=== PATIENT | male | born 2000 | race Caucasian/White ===

== ENCOUNTER 2020-02-09 17:31 | Observation (INO) ==
--- OUTSIDE RECORDS SUMMARY | 2020-02-09 17:33 | External Medical Summary | Continuity of Care Document ---
:2000 Author Name Serina Martinez Address Unavailable Unavailable , Care Team Providers Name Role Phone Victorina Mancuso M.D. Unavailable [email or web address] Testicular pain (608.9) (N50.819) Exercise Counseling Patient Education - Dietary (V65.3) Allergies and Adverse Reactions No Known Drug Allergies (Allergy) Medications No Reported Medications Refills: 0 Procedures Patient Education - Dietary Exercise Counseling Immunizations Hib (Haemophilus influenzae type b conjugate) and Hepa titis B vaccine On: 17-Jan-2001 0:00 DTaP On: 17-Jan-2001 0:00 IPV On: 17-Jan-2001 0:00 Pneumo (Prevnar) On: 17-Jan-2001 0:00 Hib (Haemophilus influenzae type b conjugate) and Hepa titis B vaccine On: 18-Mar-2001 0:00 DTaP On: 18-Mar-2001 0:00 IPV On: 18-Mar-2001 0:00 Pneumo (Prevnar) On: 18-Mar-2001 0:00 DTaP On: 12-May-2001 0:00 Pneumo (Prevnar) On: 15-Aug-2001 0:00 Hib (Haemophilus influenzae type b conjugate) and Hepa titis B vaccine On: 17-Dec-2001 0:00 MMR On: 17-Dec-2001 0:00 Varicella On: 17-Dec-2001 0:00 DTaP On: 11-Feb-2002 0:00 IPV On: 11-Feb-2002 0:00 Pneumo (Prevnar) On: 26-Jan-2003 0:00 DTaP On: 08-Jan-2006 0:00 IPV On: 08-Jan-2006 0:00 MMR On: 09-Jan-2006 0:00 Hepatitis A On: 09-Jan-2006 0:00 Hepatitis A On: 12-Jul-2006 0:00 Influenza (Nasal) On: 01-Jun-2008 0:00 Influenza (Nasal) On: 01-Jun-2009 0:00 Influenza A (H1N1) Monoval Vac SUSP On: 01-Jun-2009 0:00 Influenza (Nasal) On: 01-Jun-2010 0:00 Varicella On: 24-Oct-2010 0:00 Tdap On: 13-Dec-2011 0:00 Meningo (Menactra) On: 13-Dec-2011 0:00 Influenza (Nasal) On: 17-Jul-2012 0:00 HPV (Gardasil) On: 26-Dec-2012 0:00 FluMist LIQD On: 19-May-2013 9:36 Lot #: [id number], MEDIMMUNE HPV (Gardasil) On: 19-May-2013 9:36 Lot #: [id number], [employer] Family History Unknown Family Member Family history of Hypertension (V17.49) Status: Active Comments: Family History Family history of Pure Hypercholesterolemia Status: Active Comments: Family History Family history of Heart Disease (V17.49) Status: Active Comments: Family History Plan of Treatment Planned Observations Planned Goals not documented Results No Known Results Results not documented
--- OUTSIDE RECORDS SUMMARY | 2020-02-09 17:34 | External Medical Summary | Continuity of Care Document ---
:2000 Author Name Serina Martinez Address Unavailable Unavailable , Care Team Providers Name Role Phone Victorina Mancuso M.D. Unavailable [email or web address] [place] Problems Patient Education - Dietary (V65.3) Exercise Counseling Testicular pain (608.9) (N50.819) Allergies and Adverse Reactions No Known Drug [...] FluMist LIQD On: 19-May-2013 9:36 Lot #: [id number], MEDIMMUNE HPV (Gardasil) On: 19-May-2013 9:36 Lot #: [id number], [employer] Family History Unknown Family Member Family history of Hypertension (V17.49) Status: Active Comments: Family History Family history of Pure Hypercholesterolemia Status: Active Comments: Family History Family history of Heart Disease (V17.49) Status: Active Comments: Family History Plan of Treatment Planned Observations Planned Goals not documented Results No Known Results Results not documented
[2020-02-09] MEDS ORDERED: ONDANSETRON INJ 2 MG/ML 2 ML VIAL IV STA (17:39)
[2020-02-09] MEDS ORDERED: SODIUM CHLORIDE 0.9% 1000ML 1,000 ML IV SCH (17:45)
[2020-02-09] MEDS ORDERED: KETOROLAC TROMETHAMINE 15 MG/ML VIAL IV STA (17:56)
--- NOTE | 2020-02-09 17:56 | Emergency Department Note ---
Impression & Plan Nausea & vomiting, Diarrhea, Left sided abdominal pain ED Provider Note INFORMANT: [Patient] ED PROVIDER(S): Simba Youngblood MD CHIEF COMPLAINT: Abdominal pain PLAN: Disposition: Admitted Condition: Good Outpatient prescription management: [none] MEDICAL DECISION MAKING: Patient presented with left-sided abdominal pain. He noted starting with diarrhea yesterday. He has had multiple episodes of vomiting today. The p atient was given normal saline hydration. IV Toradol and Zofran were administered. He had blood work obtained. He had a significant leukocytosis of 20,000 with left shift on differential. Chemistry panel was unremarkable. Patient underwent CT imaging due to the abdominal pain and significant le ukocytosis. The patient has findings concerning for acute appendicitis. Patient was given IV Mefoxin. He declined additional analgesia. Consultation was made with Dr. Covarrubias of general surgery. He evaluated the patient in the ER and took him to the operative suite for further management. Triage Nursing notes reviewed and agree them. Vital Signs: reviewed and remarkable for [no significant abnormalities] Differential diagnosis: Etiologies such as gastroenteritis, food borne illness, infections, appendicitis, diverticulitis, inflammatory bowel disease, GI bleed, biliary pathology, as well as others were entertained. Diagnostics interpreted by me: Cardiac Monitoring: Cardiac monitoring ordered by me: The patient was placed on continuous cardiac monitoring and observed. It revealed a normal sinus rhythm at 70 beats per minute without ectopy or evidence of dysrhythmia. CT scan of the abdomen pelvis was performed and reveals findings discerning for acute appendicitis. Dilated appendix with appendicolith. Peer appendiceal stranding present. Consultation(s): General surgery HPI: The patient is a 19 year old male who presents to the Emergency Room with complaints of abdominal pain. This started yesterday with diarrhea and is now associated with multiple episodes of nausea and vomiting. The patient has tried zofran relieving factors. Current pain is rated as 8/10. Pt denies LOC, headache, fevers, chills, diaphoresis, visual changes, neck pain, chest pain, breathing difficulties, back pain, melena, hematochezia, urinary symptoms, numbness, weakness, lymphadenopathy, rash, or other complaints. ROS: See above HPI for pertinent positives & negatives. A total of [10] systems reviewed and were otherwise negative. PAST MEDICAL HISTORY:[See Below] Pt denies PAST SURGICAL HISTORY:[See Below] FAMILY HISTORY:[See Below] SOCIAL HISTORY:[See Below]Lives with family. HOME MEDICATIONS:[See Below] ALLERGIES:[See Below] VITALS:[See Below] PHYSICAL EXAMINATION: GENERAL: Awake, alert, uncomfortable-appearing, in no distress HENT: Normocephalic, atraumatic. Oropharynx unremarkable. EYES: Normal conjunctiva. Sclera non-icteric. NECK: Inspection normal. Non-tender. Supple. No nuchal rigidity. FROM. No masses. RESPIRATORY: Clear to auscultation. No wheezes. No rales. Normal respiratory effort. CARDIAC: Normal rate. Normal rhythm. No murmurs. No rubs. Extremities warm and well perfused. Pulses equal. No JVD. GI: Soft, non-distended. LUQ tenderness to palpation. No rebound or guarding. No masses. RECTAL: Deferred. MUSCULOSKELETAL: Atraumatic. Chest examination reveals no tenderness. The back is symmetrical on inspection without obvious abnormality. There is no CVA tenderness to palpation. No joint edema. LOWER EXTREMITIES: Calves are equal size bilaterally and non-tender. No edema. No discoloration. NEURO: Normal sensorium. No sensory or motor deficits noted. SKIN: No rash or jaundice noted. ED COURSE: [Critical Care:] [None] Simba Youngblood MD Past Med/Surg History Medical History (Updated 02/09/20 @ 20:[address] MD) Acute appendicitis with localized peritonitis Social History Smoking Status: Former smoker Tobacco Type: Cigarettes Do You Dip or Chew Tobacco: No; Hx Alcohol Use: No Hx Substance Use: No Preferred Language: Mongolian Feels Safe at Home: Yes Allergies Allergies Allergy/AdvReac Type Severity Reaction Status Date / Time No Known Allergies Allergy Verified 02/09/20 18:49 Home Meds Home Medications Medication Instructions Recorded Confirmed No Known Home Medications 02/09/20 02/09/20 Results & Data (ED) Vital Signs Vital Signs - 24 hr 02/09/20 17:35 02/09/20 18:05 02/09/20 18:06 Temperature 36.9 C Temperature Source Oral Pulse Rate 56 L 60 61 Pulse Rate [Apical] Pulse Rhythm Regular Pulse Strength Normal Respiratory Rate 20 17 Respiratory Effort / Characteristics Non-Labored Respiratory Depth Normal Respiratory Pattern Regular Blood Pressure 132/64 137/68 Blood Pressure [Left Arm] Blood Pressure Mean 86 79 Blood Pressure Mean [Left Arm] Blood Pressure Position Sitting Pulse Oximetry 99 Oxygen Delivery Method Room Air Sepsis Recent Fever Within 48 Hours No Sepsis New/Unexplained Change in Mental Status N/A Sepsis Action Taken by Nursing No Action Required 02/09/20 18:22 02/09/20 20:00 02/09/20 20:25 Temperature Temperature Source Pulse Rate Pulse Rate [Apical] 77 68 Pulse Rhythm Pulse Strength Respiratory Rate 18 19 Respiratory Effort / Characteristics Respiratory Depth Respiratory Pattern Blood Pressure Blood Pressure [Left Arm] 130/59 L 149/76 H Blood Pressure Mean Blood Pressure Mean [Left Arm] 82 100 Blood Pressure Position Pulse Oximetry 98 99 99 Oxygen Delivery Method Room Air Room Air Room Air Sepsis Recent Fever Within 48 Hours Sepsis New/Unexplained Change in Mental Status Sepsis Action Taken by Nursing Laboratory Data Result diagrams: 02/09/20 17:55 02/09/20 17:55 Lab Results 02/09/20 02/09/20 02/09/20 Range/Units 17:55 17:55 19:30 WBC 20.20 H (4.8-10.8) K/uL RBC 4.78 (4.7-6.1) M/uL Hgb 15.0 (14.0-18.0) g/dL Hct 41.8 L (42-52) % MCV 87.4 (80-100) fL MCH 31.4 (25-34) pg MCHC 35.9 (32-36) g/dL RDW Std Deviation 41.0 (36.4-46.3) fL RDW Coeff of Yakelin 12.8 (11.5-14.5) % Plt Count 259 (130-400) K/uL MPV 10.3 (7.4-10.4) fL Immature Gran % (Auto) 0.3 % Neut % (Auto) 92.7 % Lymph % (Auto) 5.4 % [place] % (Auto) 1.6 % Eos % (Auto) 0.0 % Baso % (Auto) 0.0 % Neut # (Auto) 18.70 H (1.4-6.5) K/uL Lymph # (Auto) 1.10 L (1.2-3.4) K/uL [place] # (Auto) 0.33 (0.11-0.59) K/uL Eos # (Auto) 0.00 (0-0.5) K/uL Baso # (Auto) 0.01 (0-0.2) K/uL Immature Gran # (Auto) 0.06 H (0.00-0.02) K/uL Sodium 134 L (136-145) mmol/L Potassium 4.2 (3.5-5.1) mmol/L Chloride 101 (98-107) mmol/L Carbon Dioxide 25 (21-32) mmol/L Anion Gap 9.0 (3-11) BUN 13 (7-18) mg/dl Creatinine 1.30 (0.6-1.4) mg/dl Est Cr Clr Drug Dosing 96.4 ml/min Est GFR ( Amer) 91.7 Est GFR (Non-Af Amer) 79.1 BUN/Creatinine Ratio 10.0 (10-20) Glucose 114 H (70-99) mg/dl Calcium 9.6 (8.5-10.1) mg/dl Total Bilirubin 0.6 (0.2-1) mg/dl AST 15 (15-37) U/L ALT 15 (12-78) U/L Alkaline Phosphatase 129 H (45-117) U/L Total Protein 9.3 H (6.4-8.2) gm/dl Albumin 4.3 (3.4-5.0) gm/dl Globulin 5.0 H (2.5-4.0) gm/dl Albumin/Globulin Ratio 0.9 (0.9-2) Lipase 37 L (73-393) U/L Urine Color Yellow Urine Appearance Clear (Clear) Urine pH 8.5 H (4.5-7.5) Ur Specific [place] > 1.045 H (1.000-1.030) Urine Protein Negative (Negative) Urine Glucose (UA) Negative (Negative) Urine Ketones Negative (Negative) Urine Blood Negative (Negative) Urine Nitrite Negative (Negative) Urine Bilirubin Negative (Negative) Urine Urobilinogen Negative (Negative) Ur Leukocyte Esterase Negative (Negative) Administered Medications Fentanyl Citrate (Fentanyl Citrate) 25 mcg IV Q5M PRN PRN Reason: PACU Use Only-Pain Stop: 02/10/20 04:35 Last Admin: 02/09/20 22:27 Dose: 25 mcg Documented by: [id number] Ioversol (Optiray 320 100ml) 93 ml IV ONCE PRN PRN Reason: Interaction Checking Stop: 02/13/20 19:13 Last Admin: 02/09/20 19:15 Dose: 93 ml Documented by: [id number] Discontinued Medications Bupivacaine HCl/Epinephrine Bitart (Sensorcaine/Epinephrine 0.5% Mpf 1:200,000) Confirm Administered Dose 30 ml .ROUTE .STK-MED ONE Stop: 02/09/20 20:34 Last Admin: 02/09/20 21:40 Dose: 20 ml Documented by: [id number] Sodium Chloride (Nss 1000ml) 1,000 mls @ 999 mls/hr IV .Q1H1M FANNY Stop: 02/09/20 18:45 Last Infusion: 02/09/20 19:09 Dose: 0 mls/hr Documented by: [id number] Admin: 02/09/20 18:03 Dose: 999 mls/hr Documented by: [id number] Cefoxitin Sodium (Mefoxin) 2,000 mg in 60 mls @ 100 mls/hr IV NOW STA Stop: 02/09/20 20:33 Last Admin: 02/09/20 20:17 Dose: 100 mls/hr Documented by: [id number] Ketorolac Tromethamine (Toradol) 15 mg IV NOW STA Stop: 02/09/20 17:57 Last Admin: 02/09/20 18:02 Dose: 15 mg Documented by: [id number] Ondansetron HCl (Zofran) 4 mg IV NOW STA Stop: 02/09/20 17:40 Last Admin: 02/09/20 18:03 Dose: 4 mg Documented by: [id number] Discharge Plan Visit Data *Final* Discharge Date/Time: 02/09/20 20:45 Chief Complaint: Abdominal Pain Stated Complaint: STOMACH PAIN AND VOMITING ED Provider: Simba Youngblood Discharge Problem: Nausea & vomiting, Diarrhea, Left sided abdominal pain Patient Disposition: Admitted As Inpatient Discharge Instructions Interventions: ED Discharge Assessment Last Done: 02/09/20 20:26
[2020-02-09 18:06] LABS: Basophils # (auto) 0.01 K/uL (0-0.2); Hematocrit (blood only) 41.8 % (42-52); Immature Granulocytes # (auto) 0.06 K/uL (0.00-0.02); Immature Granulocytes % (auto) 0.3 %; Lymphocytes % (auto) 5.4 %; Mean Corpuscular Hemoglobin 31.4 pg (25-34); Mean Corpuscular Hgb Conc 35.9 g/dL (32-36); Mean Corpuscular Volume 87.4 fL (80-100); Mean Platelet Volume 10.3 fL (7.4-10.4); Monocytes # (auto) 0.33 K/uL (0.11-0.59); Monocytes % (auto) 1.6 %; Neutrophils % (auto) 92.7 %; Platelet Count 259 K/uL (130-400); RDW Coefficient of Variation 12.8 % (11.5-14.5); Red Blood Count 4.78 M/uL (4.7-6.1)
[2020-02-09 18:22] LABS: Albumin Level 4.3 gm/dl (3.4-5.0); Calcium 9.6 mg/dl (8.5-10.1); Creatinine Clr Calc Pharmacy 96.4 ml/min; Est GFR (African American) 91.7; Est GFR (Non-African American) 79.1; Potassium 4.2 mmol/L (3.5-5.1)
[2020-02-09 18:25] LABS: Albumin Globulin Ratio 0.9 (0.9-2); Bilirubin,Total 0.6 mg/dl (0.2-1); Total Protein 9.3 gm/dl (6.4-8.2)
[2020-02-09] MEDS ORDERED: IOVERSOL 100ml IV PRN (19:14)
--- NOTE | 2020-02-09 19:40 | CT Scan Report ---
ABDOMEN AND PELVIS CT WITH IV CONTRAST CT DOSE: 323.48 mGy.cm HISTORY: left sided abd pain, WBC 20k, vomiting TECHNIQUE: Multiaxial CT images of the abdomen and pelvis were performed following the use of intrave nous contrast. A dose lowering technique was utilized adhering to the principles of ALARA. COMPARISON STUDY: None. FINDINGS: Tiny groundglass density within the left lower lobe posteriorly favors mild dependent hebert e. No pneumoperitoneum. No pneumatosis. No fractures within the visualized osseous structures. The li melina, gallbladder, pancreas, adrenal glands, and kidneys are unremarkable. The spleen is mildly enlarg ed measuring 14 cm in length. The bladder is unremarkable. Trace pelvic free fluid. Normal caliber ab dominal aorta. No dilated loops of small bowel to suggest an obstruction. The appendix appears to be identified within the right lower quadrant on images 297 through 324. There is a 9 mm appendicolith n ear the tip of the appendix. The tip of the appendix is distended and fluid-filled measuring up to 12 mm in diameter. There is mild periappendiceal fat stranding adjacent to the tip. No perforation or a bscess. Therefore, these findings are consistent with acute appendicitis. IMPRESSION: A 9 mm appendicolith near the tip of the appendix. The tip of the appendix is distended and fluid-izzy led measuring up to 12 mm in diameter. There is mild periappendiceal fat stranding. Therefore, these findings are consistent with acute appendicitis. ACT 112: Negative or not required by law. Electronically signed by: Fercho Johnson M.D. 02/09/2020 7:39 PM
[2020-02-09] MEDS ORDERED: cefOXitin 2,000 MG/60 ML BAG IV STA (19:58)
[2020-02-09 20:04] LABS: Appearance Urine Clear (Clear); Bilirubin Urine Negative (Negative); Blood Urine Negative (Negative); Color Urine Yellow; Glucose Urine UA Negative (Negative); Ketones Urine Negative (Negative); Leukocyte Esterase Urine Negative (Negative); Nitrite Urine Negative (Negative); Protein Urine Negative (Negative); Specific Gravity Urine > 1.045 (1.000-1.030); Urobilinogen Urine Negative (Negative); pH Urine 8.5 (4.5-7.5)
[2020-02-09] MEDS ORDERED: MIDAZOLAM HCL 1 MG/ML 2ML VIAL ONE (20:27)
[2020-02-09] MEDS ORDERED: fentaNYL citrate 100 MCG/2 ML VIAL ONE ×3 (20:27→22:24)
[2020-02-09] MEDS ORDERED: BUPIVACAINE/EPINEPHRINE 0.5% MPF 1:200,000 10 ML VIAL ONE (20:33)
[2020-02-09] MEDS ORDERED: ONDANSETRON INJ 2 MG/ML 2 ML VIAL IV PRN ×2 (20:34→21:54)
[2020-02-09] MEDS ORDERED: PROMETHAZINE HCL 12.5 MG in SODIUM CHLORIDE 0.9% 50 ML IV PRN (20:34)
[2020-02-09] MEDS ORDERED: HYDROmorphone INJ 1 MG/ML SYRINGE IV PRN (20:34)
[2020-02-09] MEDS ORDERED: ePHEDrine sulfate 50 MG/ML AMP IV PRN (20:34)
[2020-02-09] MEDS ORDERED: ATROPINE SULFATE 0.1 MG/ML 10ML SYR IV PRN (20:34)
--- NOTE | 2020-02-09 20:36 | History & Physical Report ---
Date of Service February 09, 2020 Assessment & Plan (1) Acute appendicitis with localized peritonitis: IV mefoxin IVF SCDs to OR for laparoscopic appendectomy History of Present Illness Primary Care Provider: NO PCP This is a 19YO male acute suprapubic abdominal pain. He also noted some diarrhea and multiple episodes of vomiting today. He denies dysuria, fevers, chills, or blood in his stool. A CT shows acute appendicitis and his white count is 20. Allergies Allergy/AdvReac Type Severity Reaction Status Date / Time No Known Allergies Allergy Verified 02/09/20 18:49 Home Medications Home Medications Medication Instructions Recorded Confirmed Type No Known Home Medications 02/09/20 02/09/20 History Past Med/Surg History Medical History (Updated 02/09/20 @ 20:38 by Duy Covarrubias MD) Acute appendicitis with localized peritonitis Social History Smoking Status: Former smoker Tobacco Type: Cigarettes Do You Dip or Chew Tobacco: No; Hx Alcohol Use: No Hx Substance Use: No Preferred Language: Tuvaluan Feels Safe at Home: Yes Review of Systems + anorexia; no fever and no chills no cough and no dyspnea no chest pain + abdominal pain, + nausea, + vomiting, + change in bowel habits and + diarrhea/loose stools; no blood in stools no dysuria no back pain no rash and no lesions no localized weakness and no generalized weakness no behavioral changes Physical Exam Constitutional: well developed, well nourished and average body habitus; no acute distress Neck: trachea midline Respiratory: normal respiratory effort, lungs clear to auscultation + respiratory distress Cardiovascular: RRR, no murmur, no edema Gastrointestinal (Abdomen): Inspection/Auscultation: abdomen normal to inspection and normal bowel sounds; abdomen not distended, no visible herniation and no abdominal surgical scar Percussion/Palpation: + abdomen tender and + guarding; no hernia Musculoskeletal: Head/Neck/Chest: normocephalic and head atraumatic Skin: no rashes, warm and dry Psychiatric: Orientation: alert and oriented x 3 ASA Classification ASA ASA1E Results & Data Vital Signs (Past 12 Hours) Vital Signs Temp Pulse Pulse Resp BP BP Pulse Ox 02/09/20 20:25 68 19 149/76 H 99 02/09/20 20:00 77 18 130/59 L 99 02/09/20 18:22 98 07/21/20 18:06 61 17 02/09/20 18:05 60 20 137/68 02/09/20 17:35 36.9 C 56 L 20 132/64 99 Diagnostic Findings ABDOMEN AND PELVIS CT WITH IV CONTRAST CT DOSE: 323.48 mGy.cm HISTORY: left sided abd pain, WBC 20k, vomiting TECHNIQUE: Multiaxial CT images of the abdomen and pelvis were performed following the use of intravenous contrast. A dose lowering technique was utilized adhering to the principles of ALARA. COMPARISON STUDY: None. FINDINGS: Tiny ground glass density within the left lower lobe posteriorly favors mild dependent change. No pneumoperitoneum. No pneumatosis. No fractures within the visualized osseous structures. The liver, gallbladder, pancreas, adrenal glands, and kidneys are unremarkable. The spleen is mildly enlarged measuring 14 cm in length. The bladder is unremarkable. Trace pelvic free fluid. Normal caliber abdominal aorta. No dilated loops of small bowel to suggest an obstruction. The appendix appears to be identified within the right lower quadrant on images 297 through 324. There is a 9 mm appendicolith near the tip of the appendix. The tip of the appendix is distended and fluid-filled measuring up to 12 mm in diameter. There is mild periappendiceal fat stranding adjacent to the tip. No perforation or abscess. Therefore, these findings are consistent with acute appendicitis. IMPRESSION: A 9 mm appendicolith near the tip of the appendix. The tip of the appendix is distended and fluid-filled measuring up to 12 mm in diameter. There is mild periappendiceal fat stranding. Therefore, these findings are consistent with acute appendicitis. Code Status & VTE Plan Code Status Full Code VTE Prophylaxis Plan VTE Prophylaxis will be ordered: Yes Reason for no VTE drug order: Treatment not indicated
--- NOTE | 2020-02-09 20:38 | Anesthesiology Consultation ---
Date of Service February 09, 2020 Assessment & Plan (1) Encounter for pre-operative examination: Chart Review Chart Review: Acceptable Risk for Surgery and Patient NOT seen in Pre Admission Testing Consults Requested none History Surgery Operation Date: 02/09/20 20:00 Proposed Procedures p Laparoscopic Appendectomy - Duy Covarrubias MD Height/Weight Height: 6 ft Weight: 74.6 kg Allergies Allergy/AdvReac Type Severity Reaction Status Date / Time No Known Allergies Allergy Verified 02/09/20 18:49 Medications Home Medications Medication Instructions Recorded Confirmed Last Taken No Known Home Medications 02/09/20 02/09/20 Unknown Active Medications Generic Name Dose Route Start Last Admin Trade Name Freq PRN Reason Stop Dose Admin Ioversol 93 ml 02/09/20 19:14 02/09/20 19:15 Optiray 320 100ml IV 02/13/20 19:13 93 ml ONCE PRN Administration Interaction Checking Past Medical History Medical History (Updated 02/09/20 @ 20:[address] MD) Acute appendicitis with localized peritonitis healthy Exercise / Class Metabolic Activity 1 > 8 Run/Swim/Ski/Tennis Past Surgical History shoulder surgery Past Anesthesia History No Hx of Anesthesia Complications and No Family Hx of Anesthesia Complications History of PONV No Hx of PONV and No Hx of Motion Sickness Social History Smoking Status: Former smoker Do You Dip or Chew Tobacco: No Hx Alcohol Use: No Hx Substance Use: No Physical Exam Vital Signs Last Vital Signs Temp 36.9 C 02/09/20 17:35 Pulse 68 02/09/20 20:25 Resp 19 02/09/20 20:25 BP 149/76 H 02/09/20 20:25 Pulse Ox 99 02/09/20 20:25 Testing Laboratory Results 02/09/20 17:55 02/09/20 17:55 Urine Color Yellow 02/09/20 19:30 Urine Appearance Clear (Clear) 02/09/20 19:30 Urine pH 8.5 (4.5-7.5) H 02/09/20 19:30 Ur Specific [place] > 1.045 (1.000-1.030) H 02/09/20 19:30 Urine Protein Negative (Negative) 02/09/20 19:30 Urine Glucose (UA) Negative (Negative) 02/09/20 19:30 Urine Ketones Negative (Negative) 02/09/20 19:30 Urine Nitrite Negative (Negative) 02/09/20 19:30 Ur Leukocyte Esterase Negative (Negative) 02/09/20 19:30
[2020-02-09] MEDS ORDERED: MoRPHine SULFATE 4 MG/ML 1 ML CARP\\VIAL IV PRN (20:47)
[2020-02-09] MEDS ORDERED: OXYCODONE/ACETAMINOPHEN 5mg/325mg TAB PO PRN (20:47)
[2020-02-09] MEDS ORDERED: ACETAMINOPHEN 325 MG TAB PO PRN (20:47)
[2020-02-09] MEDS ORDERED: MoRPHine SULFATE 2 MG/ML CARP IV PRN (20:47)
[2020-02-09] MEDS ORDERED: MoRPHine SULFATE 10 MG/ML CARP/VIAL IV PRN (20:47)
[2020-02-09] MEDS ORDERED: IBUPROFEN 600 MG TAB PO PRN (20:47)
[2020-02-09] MEDS ORDERED: GLYCOPYRROLATE 0.2 MG/ML VIAL ONE (21:15)
[2020-02-09] MEDS ORDERED: PROPOFOL IV EMULSION 10 MG/ML 20 ML VIAL IV ONE (21:15)
[2020-02-09] MEDS ORDERED: LARYING-O-JET KIT (LTA) ONE (21:15)
[2020-02-09] MEDS ORDERED: ROCURONIUM BROMIDE 10 MG/ML 5 ML VIAL IV ONE (21:15)
[2020-02-09] MEDS ORDERED: ONDANSETRON INJ 2 MG/ML 2 ML VIAL ONE (21:15)
[2020-02-09] MEDS ORDERED: DEXAMETHASONE SOD INJ 4 MG/ML VIAL ONE (21:15)
[2020-02-09] MEDS ORDERED: NEOSTIGMINE METHYLSULFATE 5 MG/5 ML SYR ONE (21:15)
[2020-02-09] MEDS ORDERED: SUCCINYLCHOLINE CHLORIDE 20 MG/ML 10 ML VIAL IV ONE (21:15)
--- NOTE | 2020-02-09 21:48 | Post Operative Brief Note ---
Immediate Post Op Note v1 Date of Surgery February 09, 2020 Pre & Post Diagnosis Operation Date: 02/09/20 20:00 Pre-Op Diagnosis: Acute Appendicitis Post-Op Diagnosis: Acute Appendicitis I identified the patient and participated in the time-out.: Yes Procedure Operation Date: 02/09/20 20:00 Actual Procedures p Laparoscopic Appendectomy(Not Applicable) - Duy Covarrubias MD Surgeon Duy Covarrubias MD Car Dumper Operator none Estimated Blood Loss 3 Findings Consistent with Post-Op Diagnosis
[2020-02-09] MEDS ORDERED: PROMETHAZINE HCL 25 MG in SODIUM CHLORIDE 0.9% 50 ML IV PRN (21:54)
[2020-02-09] MEDS: fentaNYL citrate 100 MCG/2 ML VIAL IV PRN ×2 (22:27→22:32)
--- NOTE | 2020-02-09 22:28 | Anesthesiology Progress Note ---
Date of Service February 09, 2020 Anesthesia Post Procedure Vital Signs Vital Signs: Temp Pulse Pulse Resp BP BP Pulse Ox 02/09/20 20:25 68 19 149/76 H 99 02/09/20 20:00 77 18 130/59 L 99 02/09/20 18:22 98 02/09/20 18:06 61 17 02/09/20 18:05 60 20 137/68 02/09/20 17:35 36.9 C 56 L 20 132/64 99 Transfer of Care Handoff Completed per policy Notes Mental Status: alert / awake / arousable and participated in evaluation Patient Amnestic to Procedure: Yes Nausea / Vomiting: adequately controlled Pain: adequately controlled Airway Patency, RR, SpO2: stable & adequate BP & HR: stable & adequate Hydration State: stable & adequate Anesthetic Complications: no major complications apparent and Pt Satisfied with anesthetic care
[2020-02-10] MEDS: OXYCODONE/ACETAMINOPHEN 5mg/325mg TAB PO PRN ×2 (01:06→08:56)
--- NOTE | 2020-02-10 01:08 | Operative Report (OR) ---
DATE OF OPERATION: 02/09/2020 PREOPERATIVE DIAGNOSIS: Acute appendicitis. POSTOPERATIVE DIAGNOSIS: Acute appendicitis. PROCEDURE PERFORMED: Laparoscopic appendectomy. SURGEON: Duy Covarrubias MD FREQUENCY CHECKER: None. ANESTHESIA: General endotracheal with 20 mL of 0.5% Marcaine with epinephrine local. ESTIMATED BLOOD LOSS: 5 mL. DRAINS: None. SPECIMENS: Appendix sent to pathology. INDICATION FOR PROCEDURE: This is a 19-year-old male admitted through the Emergency Department who came in with acute abdominal pain, had a CT scan which showed an acute appendicitis. We talked to him in detail and recommended a laparoscopic appendectomy. He understands the risks and wishes to proceed. DESCRIPTION OF PROCEDURE: The patient was taken to the OR and underwent excellent general endotracheal anesthesia. His abdomen was prepped and draped in normal sterile fashion. A transverse supraumbilical incision was made and a Veress needle was inserted into his peritoneal cavity with counter pressure with towel clamps. Once the peritoneal cavity was entered, good pneumoperitoneum was achieved to 15 mmHg pressure. A visualized 5 port was placed in the supraumbilical incision. A 5 camera was then placed under direct visualization, a 5 suprapubic, a 5 right upper quadrant, and a 12 left lower quadrant port were placed in normal fashion. The patient was placed head down and rolled to the left. His cecum was identified. This was grasped with a [place] clamp. The tip of the appendix was identified, this was acutely inflamed. We could see an appendicolith and inflammation and stranding near the tip of the appendix. With the tip of the appendix placed on tension, a Harmonic scalpel was used to take down the mesoappendix. There was minimal bleeding. This was done to the base of the appendix. A JAZMYN 45 teixeira load was then used to transect the appendix at its base. The appendix was put into an Endobag and brought out through the left lower quadrant incision. This was sent for pathologic evaluation. The pneumoperitoneum was reestablished. The abdomen was irrigated out with 300 mL of fluid. The staple line was intact and had minimal bleeding. No other abnormalities were noted in the abdominal cavity. Ports were removed. Pneumoperitoneum was decompressed. A 0 Vicryl was used to close the fascial defect on the 12 port. A 0.5% Marcaine with epinephrine local was used to create a local field block. Interrupted 4-0 Vicryl was used to close the skin. Steri-Strips and benzoin were used to reinforce the incisions. Sterile dressings were applied. The patient tolerated the procedure without any complications, was sent to postop recovery area for a period of observation, and will be discharged up to his room once he meets criteria. I attest to the content of the Intraoperative Record and any orders documented therein. Any exception s are noted below.
[2020-02-10] MEDS: LACTATED RINGER'S 1,000 ML IV SCH ×3 (08:50→08:52)
--- NOTE | 2020-02-10 09:27 | Anesthesiology Progress Note ---
Date of Service February 10, 2020 Anesthesia Post Procedure Vital Signs Vital Signs: Temp Pulse Pulse Pulse Resp BP BP 02/10/20 06:23 36.5 C 64 16 99/51 L 02/10/20 02:35 36.9 C 61 16 123/70 02/10/20 01:20 37.0 C 54 L 16 101/50 L 02/10/20 00:23 36.6 C 66 16 100/61 02/09/20 23:50 37 C 91 H 16 119/64 02/09/20 23:20 37 C 67 16 123/67 02/09/20 22:55 36.8 C 56 L 16 133/54 L 02/09/20 22:45 36.8 C 57 L 12 138/80 02/09/20 22:35 36.8 C 63 20 144/89 H 02/09/20 22:25 71 20 149/63 H 02/09/20 22:19 36.3 C L 88 19 147/82 H 02/09/20 20:25 68 19 149/76 H 02/09/20 20:00 77 18 130/59 L 02/09/20 18:22 02/09/20 18:06 61 17 02/09/20 18:05 60 20 137/68 02/09/20 17:35 36.9 C 56 L 20 132/64 Pulse Ox 02/10/20 06:23 97 02/10/20 02:35 93 02/10/20 01:20 95 02/10/20 00:23 94 02/09/20 23:50 94 02/09/20 23:20 94 02/09/20 22:55 96 02/09/20 22:45 98 02/09/20 22:35 97 02/09/20 22:25 97 02/09/20 22:19 100 02/09/20 20:25 99 02/09/20 20:00 99 02/09/20 18:22 98 02/09/20 18:06 02/09/20 18:05 02/09/20 17:35 99 Pain Intensity Right Shoulder: Pain Intensity: 5 Notes Mental Status: alert / awake / arousable and participated in evaluation Patient Amnestic to Procedure: Yes Nausea / Vomiting: adequately controlled Pain: adequately controlled Airway Patency, RR, SpO2: stable & adequate BP & HR: stable & adequate Hydration State: stable & adequate Anesthetic Complications: no major complications apparent and Pt Satisfied with anesthetic care
--- NOTE | 2020-02-10 10:56 | Surgery Progress Note ---
Date of Service F/U S/P laparoscopic appendectomy, POD 1 doing fine, no significant abdominal pain, no nausea, no vomiting, tolerated clear diet, no fever, February 10, 2020 Assessment & Plan (1) Acute appendicitis with localized peritonitis: IV mefoxin IVF SCDs to OR for laparoscopic appendectomy 02/10/2020 10:54am S/P lap appy POD 1 doing fine, but WBC 20,000. tolerated diet, pt and his Mom want to go home today, cipro 500mg po q12h, X 5 days, Flagyl 500mg po Q8h X 5 days, F/U 1-2 weeks, the post-op care instructions were given. Review of Systems Constitutional: + anorexia; no fever and no chills Gastrointestinal: + abdominal pain, + nausea, + vomiting, + change in bowel habits and + diarrhea/loose stools; no blood in stools Physical Exam Constitutional: WD/WN, vitals as above well developed and well nourished Eyes: PERRL, conjunctivae normal, anicteric sclerae ENMT: external ear and nose normal, oropharynx normal Neck: trachea midline, no thyromegaly Respiratory: normal respiratory effort, lungs clear to auscultation normal respiratory effort Cardiovascular: RRR, no murmur, no edema Rate/Rhythm: regular rate and regular rhythm Gastrointestinal (Abdomen): Percussion/Palpation: abdomen soft mild tenderness at incision sites, no redness, no drainage from incision sites, Musculoskeletal: no cyanosis or clubbing, extremities motor strength 5/5 S/P right shoulder surgery, no redness on incision site Skin: no rashes, warm and dry Neurologic: awake Psychiatric: Orientation: alert and oriented x 3 Results & Data Vital Signs (Past 12 Hours) Vital Signs Temp Pulse Pulse Resp BP Pulse Ox 02/10/20 06:23 36.5 C 64 16 99/51 L 97 02/10/20 02:35 36.9 C 61 16 123/70 93 02/10/20 01:20 37.0 C 54 L 16 101/50 L 95 02/10/20 00:23 36.6 C 66 16 100/61 94 02/09/20 23:50 37 C 91 H 16 119/64 94 02/09/20 23:20 37 C 67 16 123/67 94 02/09/20 22:55 36.8 C 56 L 16 133/54 L 96 Laboratory Results Abnormal lab results 02/09/20 02/09/20 02/09/20 Range/Units 17:55 17:55 19:30 WBC 20.20 H (4.8-10.8) K/uL Hct 41.8 L (42-52) % Neut # (Auto) 18.70 H (1.4-6.5) K/uL Lymph # (Auto) 1.10 L (1.2-3.4) K/uL Immature Gran # (Auto) 0.06 H (0.00-0.02) K/uL Sodium 134 L (136-145) mmol/L Glucose 114 H (70-99) mg/dl Alkaline Phosphatase 129 H (45-117) U/L Total Protein 9.3 H (6.4-8.2) gm/dl Globulin 5.0 H (2.5-4.0) gm/dl Lipase 37 L (73-393) U/L Urine pH 8.5 H (4.5-7.5) Ur Specific [place] > 1.045 H (1.000-1.030)
--- NOTE | 2020-02-11 01:31 | Discharge Summary (DS) ---
ADMITTING DIAGNOSIS: Acute appendicitis. DISCHARGE DIAGNOSIS: Acute appendicitis. OPERATION: Laparoscopic appendectomy. SURGEON: Duy Covarrubias MD DETAILS OF DISCHARGE SUMMARY: This is a 19-year-old gentleman who presented to the ED with acute abdominal pain. The patient had a CT scan diagnosis of acute appendicitis and Dr. Duy Covarrubias took the patient to the OR and did a laparoscopic appendectomy. The patient tolerated the procedure well and after procedure the patient was transferred to regular floor. The patient is doing fine and he tolerated a clear diet and no significant abdominal pain, no nausea, no vomiting. PHYSICAL EXAMINATION: VITAL SIGNS: Temperature is 36.5, respiratory rate 16, heart rate is 64, blood pressure 99/51, O2 saturation 97% on room air. GENERAL: The patient is alert, awake, oriented x3. HEENT: Within normal limitation. NEUROLOGIC: Intact. NECK: No JVD. CHEST: Bilateral lung sounds clear. HEART: Normal S1, S2. No murmur. ABDOMEN: Soft. Only mild incision pain. No rebound pain, no distention. All dressing intact. No redness, no drainage on the incision site. EXTREMITIES: No edema. No labs done today. Otherwise, the patient is doing fine. The patient and patient's mom wanted to go home today, 02/10/2020. I gave the patient postop care instruction and they understand. We will follow up the patient in 1-2 weeks. Based on patient had a high white count of 20,000 when the patient was admitted to the hospital, I gave patient 5 days Cipro 500 mg p.o. 2 times a day x5 days, Flagyl 500 mg p.o. 2 times a day x5 days and Percocet 5/325 one tab p.o. q. 6 hours p.r.n. for pain x10 p.o. Again, the patient wanted to go home today. We discharged the patient.
== END 2020-02-10 11:56 | disposition home or self-care (01) ==
LOC: ED 17:31 → 3W 20:25 → OR 20:25